=== PATIENT | male | born 1940 | race Caucasian/White ===

== ENCOUNTER 2017-02-23 17:08 | Emergency (ER) | payer MEDICARE ==
[~2017-02-23] VITALS: Ht 175.3 cm; Wt 70.0 kg
[~2017-02-23 17:08] MED LIST: ADVAIR DISK1 INH; ASMANEX 60220 MCG IN; BUSPIRONE15 MG PO; BUSPIRONE5 MG PO; CIPROFLOXACN500 MG PO; MEDDOSEPAK PO; MEDROL4 M1 PO; PENICILLN VK500 MG PO; PREDNISONE10 MG PO; PREDNISONE20 MG PO; PROVENTIL HFA IN; PROVENTIL INH17 GM IN; ROBITUSSIN AC10 ML PO; SPIRIVA IN; SYMBICORT 160-4.5MCG BU; SYMBICORT1 AE1 IN; ZITHROMAX500 MG PO; ZOCOR PO; ZOCOR20 M1 PO; ZOCOR5 MG PO; ZOLOFT50 MG PO; ZPAK PO
[2017-02-23 20:25] LABS: HEMATOCRIT 45.5 % (39.0-50.0); HEMOGLOBIN 14.7 g/dl (14.0-18.0); IMMATURE GRANULOCYTES 0.6 % (0.0-1.0); MEAN CELL VOLUME 96.6 fL CALC (80.0-100.0); MEAN CORPUSCULAR HGB 31.2 pG CALC (26.0-32.0); MEAN CORPUSCULAR HGB CONC 32.3 g/L CALC (32.0-36.0); NEUT# 7.66 thou/uL (1.82-7.42); RED BLOOD COUNT 4.71 mill/uL (4.70-6.10); RED CELL DISTRI WIDTH 13.7 % (11.5-15.5)
[2017-02-23 20:32] LABS: ALKALINE PHOSPHATASE 78 u/l (38-126); ANION GAP 14 (6-22 (CALC)); BILIRUBIN, TOTAL 0.5 mg/dL (0.0-1.4); BUN 20 mg/dL (8-23); BUN/CREATININE RATIO 24 (12-20 (CALC)); CALCIUM 9.4 mg/dL (8.4-10.2); CARBON DIOXIDE 29 mmol/l (22-30); CHLORIDE 105 mmol/l (95-108); CREATININE 0.8 mg/dL (0.7-1.3); GFR > 60 ML/MIN (>=60 (CALC)); GFR FOR AFR.AMER. > 60 ML/MIN (>=60 (CALC)); GLUCOSE 94 mg/dL (82-115); POTASSIUM 4.3 mmol/l (3.5-5.1); SGOT/AST 41 u/l (19-48); SGPT/ALT 29 u/l (11-66); SODIUM 143 mmol/l (137-146); TOTAL PROTEIN 7.4 g/dL (6.3-8.2)
[2017-02-23 20:35] LABS: INFLUENZA A NONE DETECTED (NONE DETECT); INFLUENZA B NONE DETECTED (NONE DETECT)
[2017-02-23] MEDS ORDERED: Levaquin PO (22:12)
[2017-02-23 22:40] VITALS: BP 114/68
== END 2017-02-23 22:44 | disposition home or self-care (01) ==
LOC: ED 17:08
PROVIDERS: Emergency Medicine
DX: J44.0 Chronic obstructive pulmonary disease with (acute) lower respiratory infection (principal); J20.9 Acute bronchitis, unspecified; E78.5 Hyperlipidemia, unspecified; F32.9 Major depressive disorder, single episode, unspecified

== ENCOUNTER 2017-07-01 09:41 | Emergency (ER) | payer MEDICARE ==
[~2017-07-01] VITALS: Ht 175.3 cm; Wt 69.0 kg
[~2017-07-01 09:41] MED LIST changes: +Levaquin PO
[2017-07-01] MEDS ORDERED: DOXYCYC MONO100 M2 PO (10:22)
[2017-07-01 10:50] VITALS: BP 139/69
== END 2017-07-01 10:57 | disposition home or self-care (01) ==
LOC: ED 09:41
DX: J44.9 Chronic obstructive pulmonary disease, unspecified (principal); E78.5 Hyperlipidemia, unspecified; F32.9 Major depressive disorder, single episode, unspecified

== ENCOUNTER 2017-10-21 18:30 | Emergency (ER) | payer MEDICARE ==
[~2017-10-21] VITALS: Ht 175.3 cm; Wt 69.0 kg
[~2017-10-21 18:30] MED LIST changes: +DOXYCYC MONO100 M2 PO
[2017-10-21 18:56] LABS: HEMATOCRIT 46.7 % (39.0-50.0); IMMATURE GRANULOCYTES 0.3 % (0.0-1.0); MEAN CELL VOLUME 97.5 fL CALC (80.0-100.0); MEAN CORPUSCULAR HGB 31.3 pG CALC (26.0-32.0); MEAN CORPUSCULAR HGB CONC 32.1 g/L CALC (32.0-36.0); NEUT# 9.16 thou/uL (1.82-7.42); RED BLOOD COUNT 4.79 mill/uL (4.70-6.10)
[2017-10-21 19:05] LABS: ALBUMIN 4.3 g/dL (3.2-5.0); ALKALINE PHOSPHATASE 81 u/l (38-126); ANION GAP 17 (6-22 (CALC)); BILIRUBIN, TOTAL 0.3 mg/dL (0.0-1.4); BUN 18 mg/dL (8-23); BUN/CREATININE RATIO 17 (12-20 (CALC)); CARBON DIOXIDE 27 mmol/l (22-30); CHLORIDE 104 mmol/l (95-108); CREATININE 1.1 mg/dL (0.7-1.3); GFR > 60 ML/MIN (>=60 (CALC)); GFR FOR AFR.AMER. > 60 ML/MIN (>=60 (CALC)); GLUCOSE 137 mg/dL (82-115); POTASSIUM 4.5 mmol/l (3.5-5.1); SGOT/AST 37 u/l (19-48); SGPT/ALT 28 u/l (11-66); SODIUM 144 mmol/l (137-146); TOTAL PROTEIN 6.7 g/dL (6.3-8.2)
[2017-10-21 19:17] LABS: MYOGLOBIN 50 ng/mL (0 - 121)
[2017-10-21 20:05] LABS: INFLUENZA A NONE DETECTED (NONE DETECT); INFLUENZA B NONE DETECTED (NONE DETECT)
[2017-10-21 20:18] LABS: URINE BILIRUBIN - DIPSTICK NEGATIVE (NEGATIVE); URINE BLOOD DIPSTICK NEGATIVE (NEGATIVE); URINE CLARITY CLEAR; URINE COLOR YELLOW; URINE GLUCOSE - DIPSTICK NEGATIVE (NEGATIVE); URINE KETONE NEGATIVE (NEGATIVE); URINE LEUK ESTERASE NEGATIVE (NEGATIVE); URINE NITRITE - DIPSTICK NEGATIVE (Negative); URINE PH 5.5 (4.5-8.0); URINE PROTEIN - DIPSTICK NEGATIVE (NEG-TRACE); URINE SPECIFIC GRAVITY 1.025; URINE UROBILINOGEN - DIPSTICK 0.2 E.U./dL (0.2)
[2017-10-21] MEDS ORDERED: Levaquin PO (22:23)
[2017-10-21 22:58] VITALS: BP 117/66
== END 2017-10-21 22:50 | disposition left against medical advice (07) ==
LOC: ED 18:30
PROVIDERS: Emergency Medicine
DX: J44.1 Chronic obstructive pulmonary disease with (acute) exacerbation (principal); Z99.81 Dependence on supplemental oxygen; R06.02 Shortness of breath; Z91.19 Patient's noncompliance with other medical treatment and regimen